=== PATIENT | female | born 1955 | race Caucasian/White ===

== ENCOUNTER → 2018-11-12 14:28 | Outpatient (CLI) | payer OTHER, SELFPAY ==
--- NOTE | 2018-11-12 | DI.MG.S_ITS ---
BILATERAL DIGITAL SCREENING MAMMOGRAM 3D/2D WITH CAD WITH AUGMENTATION: 11/12/2018 Comparison is made to exam dated: 08/28/2017 mammogram - [facility]. The tissue of both breasts is heterogeneously dense. This may lower the sensitivity of mammography. Current study was also evaluated with a Computer Aided Detection (CAD) system. Bilateral breast implants are stable and intact. No significant masses, calcifications, or other findings are seen in either breast. There has been no significant interval change. IMPRESSION: NEGATIVE There is no mammographic evidence of malignancy. A 1 year screening mammogram is recommended. This exam was interpreted at Station ID: [id number]. NOTE: For mammograms, a report in lay terms will be sent to the patient. Approximately 15% of breast malignancies will not be visualized mammographically. In the management of a palpable breast mass, a negative mammogram must not discourage biopsy of a clinically suspicious lesion. Electronically Signed By: Greer lubin/micaela:11/14/2018 13:43:47 letter sent: Normal Exam ACR BI-RADS Category 1: Negative 3341F
== END ==
PROVIDERS: PCP Internal Medicine; Visit Provider Internal Medicine
DX: Z12.31 Encounter for screening mammogram for malignant neoplasm of breast (principal)
CPT/HCPCS: 77063; 77067

== ENCOUNTER → 2020-12-16 10:07 | Outpatient (CLI) | payer OTHER, SELFPAY ==
--- NOTE | 2020-12-16 10:09 | DI.MG.S_ITS ---
BILATERAL DIGITAL SCREENING MAMMOGRAM 3D/2D WITH CAD WITH AUGMENTATION: 12/16/2020 CLINICAL: Routine screening. Comparison is made to exams dated: 11/12/2018 mammogram - [facility], 08/28/2017 mammogram, and 08/22/2016 mammogram - [facility]. The tissue of both breasts is heterogeneously dense. This may lower the sensitivity of mammography. Current study was also evaluated with a Computer Aided Detection (CAD) system. Bilateral breast implants are stable and intact. No significant masses, calcifications, or other findings are seen in either breast. There has been no significant interval change. IMPRESSION: NEGATIVE There is no mammographic evidence of malignancy. A 1 year screening mammogram is recommended. This exam was interpreted at Station ID: [id number]. NOTE: For mammograms, a report in lay terms will be sent to the patient. Approximately 15% of breast malignancies will not be visualized mammographically. In the management of a palpable breast mass, a negative mammogram must not discourage biopsy of a clinically suspicious lesion. Electronically Signed By: Kwaku Jarvis acr/micaela:12/16/2020 11:48:20 letter sent: Normal Exam ACR BI-RADS Category 1: Negative 3341F
== END ==
PROVIDERS: PCP Internal Medicine; Referring Provider Internal Medicine; Visit Provider Internal Medicine
DX: Z12.31 Encounter for screening mammogram for malignant neoplasm of breast (principal)
CPT/HCPCS: 77063; 77067

== ENCOUNTER 2021-05-02 18:41 | Emergency (ER) | payer OTHER, SELFPAY ==
[2021-05-02 18:45] VITALS: BP 160/82; PULSE 76; RESP 14; TEMP 36.5; O2SAT 98; BMI 28.5
--- NOTE | 2021-05-02 18:48 | DI.RAD.S_ITS ---
PROCEDURE: XR WRIST LT MIN 3V INDICATIONS: fall, wrist pain TECHNIQUE: 4 views of the wrist were acquired. COMPARISON: None. FINDINGS: Bones: No fractures or dislocations. Osteoarthritic changes along radial aspect of left wrist are seen most prominent involving 1st CMC joint. No suspicious bony lesions. Scaphoid view: Scaphoid is grossly intact. Soft tissues: No suspicious soft tissue calcifications. 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 No acute fracture or dislocation. Dictated by: Gustavo Nathan M.D. on 05/02/2021 at 19:11 Approved by: Gustavo Nathan M.D. on 05/02/2021 at 19:12
--- NOTE | 2021-05-02 18:49 | ED.EXTPRO ---
HPI - Extremity Problem <Daniel Bailey PA-C - Last Filed: 05/02/21 19:35> General Chief complaint: Extremity Injury, Upper Stated complaint: Left wrist injury one hour ago Time Seen by Provider: 05/02/21 18:47 History of Present Illness HPI Narrative: Patient is a 65-year-old female who presents to the ED complaining of left wrist pain. She reports that she was trying to rescue a large animal and in the process the animal pulled her down to the ground she fell landed on her left wrist. She is also complaining of pain in her left knee however she is not having any concerns and is not as should having her knee evaluated today. Her primary focus seems to be on her left wrist. She has pain with motion of the left wrist. No laceration or any other injury reported. No reported loss of consciousness. No reported past medical history. Related Data Previous Rx's Medication Instructions Recorded diclofenac sodium 1 % gel topical 2 g TOPICAL QID #1 ea 05/02/21 kit Allergies Allergy/AdvReac Type Severity Reaction Status Date / Time bupropion [From Wellbutrin] Allergy Verified 05/02/21 18:54 Penicillins Allergy Verified 05/02/21 18:54 Review of Systems <Daniel Bailey PA-C - Last Filed: 05/02/21 19:35> Review of Systems ROS Unobtainable: All systems reviewed & are unremarkable except as noted in HPI and below Constitutional Constitutional: Denies chills, Denies fatigue, Denies fever(s), Denies frequent falls, Denies lethargy and Denies weakness Eyes Eyes: Denies change in vision, Denies eye discharge, Denies irritation and Denies loss of vision ENT Ears, Nose, Mouth, and Throat: Denies change in voice, Denies dizziness, Denies neck pain, Denies sore throat and Denies throat swelling Cardiovascular Cardiovascular: Denies chest pain, Denies irregular heart rhythm, Denies lightheadedness, Denies palpitations, Denies dyspnea, Denies dyspnea on exertion and Denies orthopnea Respiratory Respiratory: Denies cough, Denies dyspnea, Denies dyspnea on exertion and Denies wheezing Gastrointestinal Gastrointestinal: Denies abdominal pain, Denies change in bowel habits, Denies diarrhea, Denies nausea and Denies vomiting Genitourinary Genitourinary: Denies hematuria, Denies flank pain, Denies urinary incontinence and Denies urinary urgency Musculoskeletal Musculoskeletal: Denies back pain, Reports arthralgias, Denies muscle weakness, Denies neck pain, Denies numbness and Denies tingling Integumentary/Breasts Skin/Breast: Denies pruritus, Denies erythema, Denies rash and Denies wounds Neurologic Neurologic: Denies behavioral changes, Denies confusion, Denies dizziness, Denies frequent falls, Denies loss of vision, Denies numbness, Denies tingling and Denies weakness Psychiatric Psychiatric: Denies anxiety, Denies behavioral changes, Denies confusion, Denies depression, Denies homicidal ideation and Denies suicidal ideation Endocrine Endocrine: Denies fatigue, Denies flushing and Denies palpitations Hematologic/Lymphatic Hematologic/Lymphatic: Denies easy bruising Allergic/Immunologic Allergic/Immunologic: Denies urticaria, Denies throat swelling and Denies wheezing Patient History <Daniel Bailey PA-C - Last Filed: 05/02/21 19:35> Social History Smoking Status: Former smoker Exam <Daniel Bailey PA-C - Last Filed: 05/02/21 19:35> Initial Vital Signs Initial Vital Signs: Vital Signs Temperature 97.7 F 05/02/21 18:45 Pulse Rate 76 05/02/21 18:45 Respiratory Rate 14 05/02/21 18:45 Blood Pressure 160/82 H 05/02/21 18:45 Pulse Oximetry 98 05/02/21 18:45 Const General: cooperative, healthy appearing, comfortable and well developed Nutritional Appearance: average body habitus Orientation: Orientation Extrem Left upper extremity: normal to inspection and wrist Details: swelling Location: of the dorsal wrist Course <JENNIFER Jeffrey Last Filed: 05/02/21 19:35> Orders Ordered: ED Orders 05/02/21 18:48 XR wrist LT min 3V Stat Vital Signs Vital signs: Vital Signs - 8 hr 05/02/21 18:45 Temperature 97.7 F Pulse Rate 76 Respiratory Rate 14 Blood Pressure 160/82 H Pulse Oximetry 98 MDM - Extremity (Nontraumatic) <JENNIFER Jeffrey Last Filed: 05/02/21 19:35> Differential Diagnosis Differential diagnosis: Likely other Imaging Data Extremity x-ray #1: Radiologist's Impression: Impression osteoarthritic changes in left wrist more prominent involving 1st CMC joint. No acute fracture dislocation MDM Narrative Medical decision making narrative: Patient was evaluated for left wrist pain. X-ray did not show any evidence of fracture dislocation however did show some osteoarthritic changes in the 1st CMC joint which is where she is mostly having pain. Spoke with her about x-ray findings suggested some diclofenac gel and wrist splint of which she was agreeable to both. Prescription for diclofenac gel was sent over to her pharmacy of record and she will be discharged home. I did still her that if there was no improvement in her symptoms over the next week that she would need to follow up with PCP or medical insurance claims specialist. Discharge Plan Departure Patient Disposition: Home Clinical Impression: Sprain and strain of wrist Instructions: DI for Wrist Sprain Activity Restrictions/Additional Instructions: The x-ray done today did not show any evidence of any fracture however did show some osteoarthritic changes in the left thumb. 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 The Velcro wrist splint you can wear as you need to if you see improvement in your symptoms you can remove. If after 1 week if still having continued pain I would recommend you follow-up with your regular doctor or see an medical insurance claims specialist for further evaluation. Thank you for the opportunity to care for you today Prescriptions: New diclofenac sodium 1 % kit 2 g topical QID Qty: 1 0RF Rx Instructions: apply to wrist or hand; for hand includes palm/fingers/back of hand Referrals: Salome Rod MD [Primary Care Provider] -
== END 2021-05-02 19:44 | disposition home or self-care (01) ==
PROVIDERS: Emergency Provider Physician Assistant; PCP Internal Medicine
DX: S63.502A Unspecified sprain of left wrist, initial encounter (principal); W18.30XA Fall on same level, unspecified, initial encounter
CPT/HCPCS: 73110; 99282; 99283